=== PATIENT | male | born 1965 | race Two or more races ===

== ENCOUNTER 2023-09-30 23:07 | Emergency (ER) | payer OTHER ==
[~2023-09-30] VITALS: Ht 172.7 cm; Wt 81.6 kg
[2023-10-01] MEDS ORDERED: TAMS0.4C (00:44)
[2023-10-01] MEDS ORDERED: DIOVAN40 MG (00:45)
[2023-10-01] MEDS ORDERED: COZAAR25 MG (00:45)
[2023-10-01] MEDS ORDERED: CRESTOR5 MG (00:45)
[2023-10-01 01:39] LABS: PH,URINE 6.5 (5.0-8.0); URINE APPEARANCE Clear; URINE BILIRRUBIN Negative (NEGATIVE); URINE BLOOD Large; URINE COLOR Yellow; URINE GLUCOSE Negative (NEGATIVE); URINE LEUKOCYTE Negative; URINE NITRATE Negative; URINE PROTEIN Negative (NEGATIVE); URINE UROBILINOGEN 0.2 E.U./dl
[2023-10-01 01:42] LABS: URINE RBC 434.1 uL (0.0-20.8); URINE WBC 70.9 uL (0.0-23.2)
[2023-10-01 02:32] LABS: URINE EPITHELIAL CELLS 0-4 /HPF
[2023-10-01] MEDS ORDERED: CEPHALEXIN500 MG PO (03:24)
== END 2023-10-01 04:00 | disposition home or self-care (01) ==
LOC: ER 23:08
PROVIDERS: Emergency Medicine
DX: R34 Anuria and oliguria (principal); N40.0 Benign prostatic hyperplasia without lower urinary tract symptoms; I10 Essential (primary) hypertension

== ENCOUNTER 2023-10-16 11:55 | Outpatient (CLI) | payer OTHER ==
[~2023-10-16 11:55] MED LIST: CEPHALEXIN500 MG PO; COZAAR25 MG; CRESTOR5 MG; DIOVAN40 MG; TAMS0.4C
== END 2023-10-16 11:56 | disposition home or self-care (01) ==
LOC: LAB 11:55
PROVIDERS: ATTEND Urology
DX: R97.20 Elevated prostate specific antigen [PSA] (principal)

== ENCOUNTER 2023-10-30 07:11 | Outpatient (CLI) | payer OTHER | END 2023-10-30 07:34 | disposition home or self-care (01) | LOC: SONOGRAMA 07:11 | PROVIDERS: ATTEND Urology | DX: N40.1 Benign prostatic hyperplasia with lower urinary tract symptoms (principal); R97.20 Elevated prostate specific antigen [PSA] ==